=== PATIENT | female | born 1935 | race African-American/Black ===

== ENCOUNTER → 2021-06-03 | Outpatient (CLI) | payer MEDICARE ==
--- NOTE | 2021-06-03 11:23 | RAD ---
EXAM: CT CHEST WITHOUT CONTRAST (LDCT LUNG CANCER SCREENING). HISTORY: Risk factors for pulmonary malignancy. Tobacco use. COPD. TECHNIQUE: CT of the chest was performed without intravenous contrast using a low-dose lung screening protocol. Findings analysis is based on ACR Lung-RADS v1.1. *One or more of the following individual ized dose reduction techniques were utilized for this examination: 1. Automated exposure control. 2. Adjustment of the mA and/or kV according to patient size. 3. Use of iterative reconstruction technique. COMPARISON: Abdomen CT dated 06/19/2014. FINDINGS: The heart is normal in size. The aorta is normal in caliber. There is calcified atheroscler otic plaque involving the aorta, aortic arch great vessels and coronary arteries. There is calcificat ion of the aortic valve. No pathologically enlarged mediastinal or hilar lymph node is seen. There ar e calcified subcarinal granulomas. There is no pneumothorax or pleural effusion. There is moderate emphysema with basilar predominant ch ronic interstitial changes and bilateral posterior dependent and basilar atelectasis. There is biapic al pleural parenchymal scarring. There is no suspicious pulmonary nodule. There is no acute finding i nvolving the upper abdomen. There is partial visualization of an infrarenal abdominal aortic aneurysm measuring 4.9 cm. There is a stable suspected 1.6 cm left adrenal adenoma or nodular thickening of t he adrenal gland. IMPRESSION: 1. No suspicious pulmonary nodule. Lung RADS category 1: Annual low dose lung cancer screening CT in 12 months is recommended. 2. Emphysema with peripheral predominant chronic interstitial changes. 3. 4.9 cm infrarenal abdominal aortic aneurysm partially included on the [id number]. This is incre ased compared to a measurement of 3.[address] performed 06/19/2014. Dedicated imaging of the remain eder of the aorta is recommended given the interval change. Electronically signed by: Nohemi Hill MD (06/03/2021 11:21 AM) [id number]
== END ==
LOC: CT 11:10
PROVIDERS: ATTEND Family Medicine
DX: J43.9 Emphysema, unspecified (principal); I71.4 Abdominal aortic aneurysm, without rupture; I35.1 Nonrheumatic aortic (valve) insufficiency; I25.10 Atherosclerotic heart disease of native coronary artery without angina pectoris; I70.0 Atherosclerosis of aorta; J84.10 Pulmonary fibrosis, unspecified; J98.11 Atelectasis; Z72.0 Tobacco use
CPT/HCPCS: 71271

== ENCOUNTER → 2021-06-20 | Outpatient (CLI) | payer MEDICARE ==
--- NOTE | 2021-06-20 15:58 | RAD ---
CLINICAL HISTORY: Reason: AAA / Spl. Instructions: / History: COMPARISON: CT abdomen pelvis 06/19/2014. CT low dose lung screening 06/03/2021. TECHNIQUE: The abdominal aorta was examined from the diaphragm to the proximal common iliac arteries. FINDINGS: The proximal and mid abdominal aorta are not visualized. Iliac arteries are not visualized. There is a distal abdominal aortic aneurysm measuring 5.0 x 4.8 cm over approximately 7 cm in length. This correlates with findings on CT lung screening 06/03/2021 but has increased compared to CT abdom en and pelvis 06/14/2014 where it measured 3.9 x 3.6 cm. IMPRESSION: Distal abdominal aortic aneurysm measuring 5.0 x 4.8 cm. This has increased in size from 06/14/2014 an d is suboptimally evaluated by ultrasound. The proximal and mid abdominal aorta and iliac arteries ar e not visualized. Recommend CT to fully evaluate. Electronically signed by: Gayle Devlin MD (06/20/2021 3:56 PM) [id number]
== END ==
LOC: US 07:55
PROVIDERS: ATTEND Family Medicine
DX: I71.4 Abdominal aortic aneurysm, without rupture (principal)
CPT/HCPCS: 76770